=== PATIENT | female | born 1975 | race Caucasian/White ===

== ENCOUNTER 2018-02-10 11:16 | Emergency (ER) | payer OTHER ==
[~2018-02-10] VITALS: Ht 167.6 cm; Wt 93.0 kg
[2018-02-10] MEDS ORDERED: BIRTH CONTROL PO (11:30)
[2018-02-10] MEDS ORDERED: SYNTHROID50 MCG PO (11:30)
[2018-02-10 11:58] LABS: ABSOLUTE EOSINOPHILS 0.2 thou/uL (0.0-0.7); ABSOLUTE LYMPHOCYTES 1.5 thou/uL (0.8-5.3); ABSOLUTE MONOCYTES 0.5 thou/uL (0.0-1.2); ABSOLUTE NEUTROPHILS 3.7 thou/uL (1.6-8.1); BASOPHILS 0.8 %; EOSINOPHILS 3.4 %; HEMATOCRIT 39.4 % (37.0-47.0); HEMOGLOBIN 13.4 gm/dL (12.0-15.0); LYMPHOCYTES 24.9 %; MCH 30.6 pg (26.0-34.0); MCV 90.2 fL (80.0-100.0); MONOCYTES 8.5 %; MPV 7.6 fl. (7.2-11.1); NUCLEATED RBCS 0 /100WBC; PLATELET COUNT* 299 thou/uL (150-400); POLYS 62.4 %; RBC 4.36 mil/uL (4.20-5.00); RDW-CV 12.8 % (10.5-14.5)
[2018-02-10 12:01] LABS: POTASSIUM 3.9 mmol/L (3.5-5.1)
[2018-02-10 12:05] LABS: ALBUMIN 3.8 g/dL (3.4-5.0); TOTAL BILIRUBIN 0.5 mg/dL (<0.1-1.0); TOTAL PROTEIN 7.9 g/dL (6.4-8.2)
[2018-02-10 12:33] LABS: URINE BILIRUBIN NEGATIVE (Negative); URINE BLOOD TRACE (Negative); URINE CLARITY CLEAR; URINE COLOR YELLOW; URINE GLUCOSE-RANDOM NEGATIVE (Negative); URINE KETONES TRACE (Negative); URINE LEUKOCYTES 3+ (Negative); URINE NITRITE NEGATIVE (Negative); URINE PROTEIN NEGATIVE (Negative); URINE UROBILINOGEN 0.2 E.U./dl (0.2-1.0)
[2018-02-10 13:10] LABS: SQUAMOUS >10 Many /LPF (0-3)
[2018-02-10 13:11] LABS: CASTS None Seen /LPF (None Seen); CRYSTALS None Seen /LPF (None Seen); MUCUS 0-3 Light strn/LPF (None Seen); URINE RBC 3-10 Few /HPF (0-2); URINE WBC 0-5 Rare /HPF (0-5)
[2018-02-10 13:50] VITALS: BP 136/77
--- NOTE | 2018-02-10 17:38 | EKG ---
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
== END 2018-02-10 13:51 | disposition home or self-care (01) ==
LOC: M.ERS 11:16
PROVIDERS: Physician Assistant Surgical
DX: R20.2 Paresthesia of skin (principal); R20.0 Anesthesia of skin; E03.9 Hypothyroidism, unspecified

== ENCOUNTER → 2018-03-10 | Outpatient (CLI) | payer OTHER ==
[~2018-03-10] MED LIST: BIRTH CONTROL PO; SYNTHROID50 MCG PO
[2018-03-10 21:12] LABS: IgA 252 mg/dL (87-352); IgG 1118 mg/dL (700-1600); IgM 64 mg/dL (26-217)
[2018-03-12 13:08] LABS: ANA INTERPRETATION Positive (Negative); ANTI-SSA <0.2 AI (0.0-0.9)
== END ==
LOC: M.LAB 10:44
PROVIDERS: Psychiatry & Neurology Neuromuscular Medicine
DX: R20.2 Paresthesia of skin (principal); E03.9 Hypothyroidism, unspecified

== ENCOUNTER 2020-02-04 09:44 | Emergency (ER) | payer OTHER ==
[~2020-02-04] VITALS: Ht 167.6 cm; Wt 95.7 kg
[2020-02-04] MEDS ORDERED: LIPITOR10 MG PO (10:00)
[2020-02-04 10:50] LABS: ABSOLUTE EOSINOPHILS 0.1 thou/uL (0.0-0.7); ABSOLUTE LYMPHOCYTES 1.3 thou/uL (0.8-5.3); ABSOLUTE MONOCYTES 0.4 thou/uL (0.0-1.2); ABSOLUTE NEUTROPHILS 6.3 thou/uL (1.6-8.1); BASOPHILS 0.4 %; EOSINOPHILS 1.5 %; HEMATOCRIT 38.6 % (37.0-47.0); HEMOGLOBIN 13.3 gm/dL (12.0-15.0); LYMPHOCYTES 16.2 %; MCH 31.2 pg (26.0-34.0); MCHC 34.6 g/dL (28.0-37.0); MCV 90.2 fL (80.0-100.0); MONOCYTES 5.2 %; MPV 7.5 fl. (7.2-11.1); NUCLEATED RBCS 0 /100WBC; PLATELET COUNT* 324 thou/uL (150-400); POLYS 76.7 %; RBC 4.28 mil/uL (4.20-5.00); RDW-CV 12.8 % (10.5-14.5); WBC 8.3 thou/uL (4.0-11.0)
[2020-02-04 11:25] LABS: ALBUMIN 3.6 g/dL (3.4-5.0); CALCIUM 8.4 mg/dL (8.5-10.1); CREATININE 1.1 mg/dL (0.6-1.3); TOTAL BILIRUBIN 0.4 mg/dL (<0.1-1.0); TOTAL PROTEIN 7.3 g/dL (6.4-8.2)
[2020-02-04] MEDS ORDERED: HYDROCHLOROTHIA25 M2 PO (11:34)
[2020-02-04 11:44] VITALS: BP 150/85
--- NOTE | 2020-02-06 10:37 | EKG ---
[place] [address] ELECTROCARDIOGRAM REPORT Name: ADAL BIANCHI Room: [facility]#: [id number] Admission: 02/04/20 Attend Phys: Discharge: 02/04/20 Date of : 71 Date of Service: 02/04/20 1019 Report #: [id number] THIS REPORT FOR: //name// [facility] ED Test Date: 2020-02-04 Test Time: 10:19:41 Pat Name: ADAL BIANCHI Department: Room: Gender: F Direct Support Worker: [facility] [facility] : 1975 Requested By: Janel Frank Order Number: [id number] MD: Owen Villalobos Measurements Intervals [place] Rate: 61 P: -16 DE: 142 QRS: 9 QRSD: 89 T: 25 QT: 413 QTc: 416 Interpretive Statements Sinus rhythm Compared to ECG 02/10/2018 11:49:32 No significant changes Electronically Signed On 02-06-2020 10:37:01 CDT by Owen Villalobos [email or web address] <ELECTRONICALLY SIGNED> By: Owen Villalobos MD, [facility] 02/06/20 1037 1019 1019 Owen Villalobos MD, FAC /EPI
--- NOTE | 2020-02-06 15:16 | EKG ---
[place] [address] ELECTROCARDIOGRAM REPORT Name: ADAL BIANCHI Room: [facility]#: [id number] Admission: 02/04/20 Attend Phys: Discharge: 02/04/20 Date of : 71 Date of Service: 02/04/20 1019 Report #: [id number] THIS REPORT FOR: //name// [facility] ED Test Date: 2020-02-04 Test Time: 10:19:41 Pat Name: ADAL BIANCHI Department: Room: Gender: F Diamond [employer]ender: [facility] : 1975 Requested By: Janel Frank Order Number: [id number] MD: Owen Villalobos Measurements Intervals [place] Rate: 61 P: -16 [place]: 142 QRS: 9 QRSD: 89 T: 25 QT: 413 QTc: 416 Interpretive Statements Sinus rhythm Compared to ECG 02/10/2018 11:49:32 No significant changes Electronically Signed On 02-06-2020 15:16:23 CDT by Owen Villalobos [email or web address] <ELECTRONICALLY SIGNED> By: Owen Villalobos MD, [facility] 02/06/20 1516 1019 1019 Owen Villalobos MD, FACC /EPI
== END 2020-02-04 11:45 | disposition home or self-care (01) ==
LOC: M.ERS 09:44
PROVIDERS: Personal Emergency Response Attendant
DX: I10 Essential (primary) hypertension (principal); E03.9 Hypothyroidism, unspecified